=== PATIENT | male | born 1950 | race Caucasian/White ===

== ENCOUNTER 2021-08-01 17:55 | Emergency (ER) | payer MEDICARE, OTHER ==
[~2021-08-01] VITALS: Ht 182.9 cm; Wt 97.8 kg
[~2021-08-01 17:55] MED LIST: CRESTOR20 MG PO; LEVOTHYROXINE125 MCG PO; LIPITOR20 MG PO; OLANZAPINE15 MG PO
[2021-08-01] MEDS ORDERED: LISINOPRIL10 MG PO (18:12)
[2021-08-01] MEDS ORDERED: LEVOTHYROXINE100 MCG PO (18:12)
== END 2021-08-01 21:24 | disposition home or self-care (01) ==
LOC: ED 17:55
DX: R11.2 Nausea with vomiting, unspecified (principal); E86.0 Dehydration; I10 Essential (primary) hypertension; E11.9 Type 2 diabetes mellitus without complications; Z88.2 Allergy status to sulfonamides; Z88.1 Allergy status to other antibiotic agents; Z88.0 Allergy status to penicillin; Z79.899 Other long term (current) drug therapy; Z20.822 Contact with and (suspected) exposure to COVID-19
CPT/HCPCS: 36415; 71045; 74176; 80053; 81001; 85025; 96374; 99284-25; A9270; C9803; J2405; J7030; U0003